=== PATIENT | female | born 1940 | race Caucasian/White ===

== ENCOUNTER → 2016-10-19 | Day surgery (SDC) | payer MEDICARE ==
[~2016-10-19] MED LIST: ACETAMINOPHEN PO; ADVAIR 2501 DISK W/1 INH; ADVAIR 2501 DISK W/D PO; ALBUTEROL17 GM; ALBUTEROL17 GM INH; ALPRAZOLAM PO; ASPIRIN EC81 M1 PO; ASPIRIN PO; CALCIUM + D PO; CALCIUM 500 + D1 TAB PO; CALCIUM 600-D T1 TAB PO; CELEXA10 MG PO; CELEXA20 MG PO; CLONAZEPAM0.5 MG PO; COMBIVENT INH14.7 GM INH; COMBIVENT U/D3 M2 INH; DUONEB 2.5-0.5 M3 ML INH; DUONEB 2.5-0.5 M3 ML NEB; FOSAMAX PO; GUAIFENESIN LA600 M1 PO; IRON45 MG PO; ISOSORBIDE DINI30 MG PO; KLONOPIN PO; LEVAQUIN PO; LIPITOR PO; LIPITOR20 MG PO; LORTAB 7.5-5001 TAB PO; MULTI VITAMIN1 EACH PO; PERCOCET5/325 PO; PREDNISONE PO; ROCEPHIN1 G/VIAL IV; SOLU-MEDRO40 MG/1 M2 IV; SPIRIVA18 MCG INH; SYNTHROID0.1 MG; TUSSIONEX PENN473 ML PO; VITAMIN C1000 M2 PO; XOPENEX HFA15 GM NEB; XOPENEX1.25 MG/0. NEB
--- NOTE | ~2016-10-19 | OR ---
Unit #: [id number] #: [id number] Patient: IDANIA ESTRADA [id number] [address] [address] [id number] O MR#: [id number] NAME: IDANIA ESTRADA ROOM: Date of Procedure: 10/19/2016 Admission Date: 10/19/2016 Surgeon: Miguel A Oneill M.D. : 1940 Attending Physician: Miguel A Oneill M.D. Referring Physician: Miguel A Oneill M.D. Primary Care Physician: Apryl Ann M.D. OPERATIVE REPORT PROCEDURE PERFORMED Colonoscopy with snare polypectomy. INDICATIONS FOR PROCEDURE The patient with history of colon polyps in the past, undergoing colonoscopy after 8 years. MEDICATIONS Monitored anesthesia. POSTOPERATIVE FINDINGS 1. Three small polyps, 2 to 3 mm each in the rectum, snared and sent for histopathology. 2. Good prep. 3. No large polyps or masses were seen. PLAN Given her age, no further screening colonoscopy. DESCRIPTION OF PROCEDURE The patient was explained of the procedure, risks, and benefits along with the risks and benefits of anesthesia. She was brought to the endoscopy room. Propofol anesthesia was given. Rectal exam was done, which was normal. Colonoscope was lubricated, passed up the rectum, advanced under direct vision all the way to the cecum. Cecum was identified by ileocecal valve and appendiceal orifice. I then started to pull the scope out carefully looking. Several polyps seen in rectum were snared and sent for histopathology. Rest of the exam was completely normal. I retroflexed in the rectum, internal hemorrhoids noted. Gently, the scope was pulled out. She tolerated it well. No major complications were seen. Dictated by... Cecilia Gardner/rich TD: 10/20/2016 02:23 JOB #: [id number] Unit #: [id number] #: [id number] Patient: IDANIA ESTRADA OPERATIVE REPORT Page 1 of 1 X Miguel A Oneill MD PROCEDURE OPERATIVE NOTE
== END | disposition home or self-care (01) ==
LOC: COPS 11:00
DX: Z12.11 Encounter for screening for malignant neoplasm of colon (principal); D12.8 Benign neoplasm of rectum; K64.8 Other hemorrhoids; E89.0 Postprocedural hypothyroidism; J44.9 Chronic obstructive pulmonary disease, unspecified; I10 Essential (primary) hypertension; J45.909 Unspecified asthma, uncomplicated; F17.210 Nicotine dependence, cigarettes, uncomplicated; Z86.010 Personal history of colon polyps; Z87.442 Personal history of urinary calculi; Z90.710 Acquired absence of both cervix and uterus; Z90.89 Acquired absence of other organs; Z88.6 Allergy status to analgesic agent; Z79.82 Long term (current) use of aspirin; Z79.899 Other long term (current) drug therapy
CPT/HCPCS: 88305

== ENCOUNTER → 2016-12-12 | Outpatient (CLI) | payer MEDICARE ==
--- NOTE | ~2016-12-12 | CT55 ---
[facility] A Service of [facility] RADIOLOGY TEXT RESULTS PATIENT: IDANIA ESTRADA LOCATION: [facility] : 36 UNIT #: [id number] AGE: [address]: Rafael Delacruz MD SEX: F ORDER DR: [id number] [place] [id number] O MR#: [id number] Acc #: [id number] NAME: IDANIA ESTRADA : 1940 SEX: F STUDY DATE/TIME: 12/12/2016 13:05 UNIT: [facility] ROOM: STUDY DESCRIPTION: CT Chest W Con Attending Physician: Rafael Delacruz M.D. Referring Physician: Rafael Delacruz M.D. Ordering Physician: Rafael Delacruz M.D. Primary Care Physician: Apryl Ann M.D. MEDICAL IMAGING REPORT This report is preliminary unless electronic signature is present. EXAM Chest CT with contrast HISTORY Thyroid cancer with thyroid surgery 5 years ago. Abnormal weight loss. Evaluate for chest malignancy suspected. TECHNIQUE Axial images were obtained with intravenous contrast. 100 mL of Isovue was used. This CT exam was performed with one or more of the following radiation dose reduction techniques: automatic exposure control, adjustment of mA and/or kV according to patient size, and iterative reconstruction. FINDINGS Chest images at mediastinal window show no enlarged mediastinal or hilar lymph nodes. There is no evidence of pleural or pericardial fluid. Images at lung window demonstrate emphysema. No masses or infiltrates are seen. A stable calcified granuloma is seen in the left upper lobe. IMPRESSION Emphysema. Previous granulomatous disease. No acute process seen. Dictated by... Mino Moore M.D. THIS IS AN ELECTRONICALLY VERIFIED REPORT Mino Moore M.D. at 12/13/2016 6:27 PM CLEM/theresa TD: 12/13/2016 11:49 [facility] A Service of [facility] RADIOLOGY TEXT RESULTS PATIENT: IDANIA ESTRADA LOCATION: [facility] : 38 UNIT #: [id number] AGE: [address]: Rafael Delacruz MD SEX: F ORDER DR: STACY #: [id number] MEDICAL IMAGING REPORT Page 1 of 1
--- NOTE | ~2016-12-12 | CT2 ---
[facility] A Service of [facility] & [facility] RADIOLOGY TEXT RESULTS PATIENT: IDANIA ESTRADA LOCATION: [facility] : 36 UNIT #: [id number] AGE: [address]: Rafael Delacruz MD SEX: F ORDER DR: [id number] [address] [address] [id number] O MR#: [id number] Acc #: [id number] NAME: IDANIA ESTRADA : 1940 SEX: F STUDY DATE/TIME: 12/12/2016 13:05 UNIT: [facility] ROOM: STUDY DESCRIPTION: CT Abd and Pelv W Cont Attending Physician: Rafael Delacruz M.D. Referring Physician: Rafael Delacruz M.D. Ordering Physician: Rafael Delacruz M.D. Primary Care Physician: Apyrl Ann M.D. MEDICAL IMAGING REPORT This report is preliminary unless electronic signature is present. EXAM Abdomen and pelvis CT with contrast. HISTORY Previous history of thyroid cancer. Thyroid resection 5 years ago. Abnormal weight loss recently. TECHNIQUE Axial images were obtained with oral and intravenous contrast. 100 mL of Isovue was used. This CT exam was performed with one or more of the following radiation dose reduction techniques: automatic exposure control, adjustment of mA and/or kV according to patient size, and iterative reconstruction. COMPARISON Comparison is made to a previous abdomen CT from 06/23/2013 FINDINGS The liver, spleen, and pancreas are unremarkable. There is a stable left renal cyst. No hydronephrosis on either side. No adrenal masses. There is no evidence of retroperitoneal adenopathy or ascites and no distended bowel loops are seen. There is a left inguinal hernia that contains multiple loops of bowel appearing similar in size to the previous scan in 2012. No evidence of bowel obstruction related to this. There is a small lipoma noted at the ileocecal valve. It is unchanged from the previous scan. Extensive sigmoid diverticulosis is seen without evidence of diverticulitis. Lumbar levoscoliosis is noted. IMPRESSION Left inguinal hernia containing bowel loops, unchanged from the previous examination. Extensive diverticulosis without inflammatory change. No masses are seen in the abdomen or pelvis. No active inflammatory process [facility]. [facility] A Service of [facility] & [facility] RADIOLOGY TEXT RESULTS PATIENT: IDANIA ESTRADA LOCATION: [facility] : 36 UNIT #: [id number] AGE: [address]: Rafael Delacruz MD SEX: F ORDER DR: noted. Dictated by... Mino Moore M.D. THIS IS AN ELECTRONICALLY VERIFIED REPORT Mino Moore M.D. at 12/13/2016 6:27 PM RLF/julia TD: 12/13/2016 11:44 JOB #: [id number] MEDICAL IMAGING REPORT Page 1 of 1
[2016-12-12 11:40] LABS: POC - CREATININE 0.67 mg/dL (0.44-1.03); POC - GFR >60.0 mL/min (>60)
== END | disposition home or self-care (01) ==
LOC: SCT 11:28
PROVIDERS: Internal Medicine Hematology & Oncology
DX: C73 Malignant neoplasm of thyroid gland (principal); D32.9 Benign neoplasm of meninges, unspecified; K57.30 Diverticulosis of large intestine without perforation or abscess without bleeding; K40.90 Unilateral inguinal hernia, without obstruction or gangrene, not specified as recurrent; J43.9 Emphysema, unspecified; R63.4 Abnormal weight loss
CPT/HCPCS: 71260; 74177; 82565; Q9967